=== PATIENT | male | born 1950 | race Caucasian/White ===

== ENCOUNTER 2021-12-01 11:37 | Outpatient (CLI) | payer MEDICARE, BC ==
[2021-12-01 13:33] LABS: #Basophils 0.1 10x3/uL (0.0-0.2); #Eosinphils 0.3 10x3/uL (0.0-0.5); #Neutrophils 5.3 10x3/uL (1.5-8.4); %Basophils 0.9 % (0.0-2.0); %Eosinophils 3.7 % (0.0-6.0); %Lymphocytes 20.7 % (18.0-47.0); %Monocytes 11.5 % (0.0-10.0); %Neutrophils 62.7 % (40.0-75.0); Hemoglobin 15.4 g/dL (13.5-17.5); Mean Corpuscular Hemoglobin 29.7 pg (27.0-33.0); Mean Corpuscular Volume 90.2 fl (81.2-95.1); Platelet Count 201 10x3/uL (150-450); RBC Distribution Width 13.6 % (11.5-14.5); Red Blood Cell (RBC) Count 5.18 10x6/uL (4.32-5.72); White Blood Cell (WBC) Count 8.5 10x3/uL (3.5-10.5)
[2021-12-01 14:14] LABS: ALT (SGPT) 29 U/L (8-55); AST (SGOT) 28 U/L (5-34); Alkaline Phosphatase 52 U/L (40-110); Anion Gap 11 mmol/L (10-20); BUN (Urea Nitrogen) 22 mg/dL (8.4-25.7); Bilirubin, Total 0.7 mg/dL (0.2-1.2); Calc. Creatinine Clearance 0 mL/min (70-130); Calcium 8.9 mg/dL (7.8-10.44); Carbon Dioxide 26 mmol/L (23-31); Chloride 106 mmol/L (98-107); Glucose 93 mg/dL (83-110); Potassium 4.3 mmol/L (3.5-5.1); Sodium 139 mmol/L (136-145)
[2021-12-01 20:13] LABS: SARS-CoV-2 PCR by NAA Not Detected (NotDetected)
== END 2021-12-01 11:38 | disposition home or self-care (01) ==
LOC: LABBT 11:37
PROVIDERS: ATTEND Internal Medicine Cardiovascular Disease
DX: Z01.812 Encounter for preprocedural laboratory examination (principal); Z20.822 Contact with and (suspected) exposure to COVID-19
CPT/HCPCS: 80053; 85025; U0003; U0005

== ENCOUNTER 2021-12-03 05:49 | Inpatient (IN) | payer MEDICARE, BC ==
[2021-12-03] MEDS ORDERED: Midazolam HCl 2 mg/2 ml Vial ONE (07:04)
[2021-12-03] MEDS ORDERED: Fentanyl 100 MCG/2 ML VIAL ONE ×2 (07:05→08:14)
[2021-12-03] MEDS ORDERED: Nitroglycerin 4.9 GM Bottle ONE (08:00)
[2021-12-03] MEDS ORDERED: Nitroglycerin 2% Ointment 1 INCH/1 GM Packet ONE (08:00)
[2021-12-03] MEDS ORDERED: Iopamidol 370 76% 100 ML VIAL ONE (08:48)
[2021-12-03] MEDS ORDERED: Nitroglycerin 0.4 MG TAB (25 Tab Bottle) SL PRN (09:00)
[2021-12-03] MEDS ORDERED: Rosuvastatin 10 MG TAB PO SCH (09:00)
[2021-12-03] MEDS ORDERED: Acetaminophen/Codeine 30-300mg Tablet PO PRN ×2 (09:00)
[2021-12-03] MEDS ORDERED: Metoprolol Tartrate 25 MG TAB PO SCH (09:00)
[2021-12-03 11:54] VITALS: BMI 24.7
[2021-12-03] MEDS ORDERED: Enoxaparin Sodium 40 MG/0.4 ML SYRINGE SC SCH (21:00)
[2021-12-03] MEDS ORDERED: Polyvinyl Alcohol 1.4%/Povidone 0.6% Opth Drops EA EYE SCH (21:00)
[2021-12-03] MEDS ORDERED: Aspirin 81 mg Enteric Coated Tablet PO SCH (21:00)
[2021-12-03] MEDS ORDERED: Latanoprost 0.005% Ophth Soln 2.5 ml Bottle EA EYE SCH (21:00)
[2021-12-03] MEDS ORDERED: Nitroglycerin 2% Ointment 1 INCH/1 GM Packet TOP SCH (22:00)
[2021-12-03 22:36] VITALS: BP 142/75; TEMP 98.1
== END 2021-12-03 21:45 | disposition short-term general hospital (02) | DRG 287 ==
LOC: CCL 05:49 → SURG A 08:40 → 2NO 11:37
PROVIDERS: ADMIT Internal Medicine Cardiovascular Disease; ATTEND Internal Medicine Cardiovascular Disease
PROC: 4A023N7 Measurement of Cardiac Sampling and Pressure, Left Heart, Percutaneous Approach (ICD-10-PCS; principal; 2021-12-03)
PROC: B2131ZZ Fluoroscopy of Multiple Coronary Artery Bypass Grafts using Low Osmolar Contrast (ICD-10-PCS; 2021-12-03)
DX: I25.118 Atherosclerotic heart disease of native coronary artery with other forms of angina pectoris (principal); K21.9 Gastro-esophageal reflux disease without esophagitis; E61.1 Iron deficiency; I12.9 Hypertensive chronic kidney disease with stage 1 through stage 4 chronic kidney disease, or unspecified chronic kidney disease; E78.00 Pure hypercholesterolemia, unspecified; I34.0 Nonrheumatic mitral (valve) insufficiency; I35.0 Nonrheumatic aortic (valve) stenosis; N18.31 Chronic kidney disease, stage 3a; I65.22 Occlusion and stenosis of left carotid artery; Z88.0 Allergy status to penicillin; Z88.8 Allergy status to other drugs, medicaments and biological substances; Z79.82 Long term (current) use of aspirin; Z79.899 Other long term (current) drug therapy; Z98.890 Other specified postprocedural states
CPT/HCPCS: 93459; 93880; 99152; J1650; J2250; J3010; Q9967

== ENCOUNTER 2023-07-26 06:27 | Day surgery (SDC) | payer MEDICARE, BC ==
[2023-07-25 10:48] VITALS: BMI 24.3
[~2023-07-26 06:27] MED LIST: EPINEPHrine 0.3 MG in Ophthalmic Irrigation Solution 500 ML IRR SCH
[2023-07-26] MEDS ORDERED: Midazolam HCl 2 mg/2 ml Vial ONE (06:32)
[2023-07-26] MEDS ORDERED: PROPOFOL 20 ML ONE (06:32)
[2023-07-26] MEDS ORDERED: fentaNYL 50 mcg/mL 1 mL Vial ONE (06:32)
[2023-07-26] MEDS ORDERED: Cyclopentolate W/ Phenylephrin 40 DROP/2 ML BOT ONE (06:45)
[2023-07-26] MEDS ORDERED: Lidocaine 4% PF 5 ML AMP ONE (07:45)
[2023-07-26] MEDS ORDERED: Bupivacaine 0.75% 10 ML VIAL ONE (07:45)
[2023-07-26] MEDS ORDERED: Maxitrol 0.1% Opth Oint 3.5 GM TUBE ONE (07:45)
[2023-07-26] MEDS ORDERED: Triamcinolone 40 MG/ML VIAL ONE (07:45)
== END 2023-07-26 08:45 | disposition home or self-care (01) ==
LOC: SDC 06:27
PROVIDERS: ATTEND Ophthalmology Retina Specialist
PROC: 08T43ZZ Resection of Right Vitreous, Percutaneous Approach (ICD-10-PCS; principal; 2023-07-26)
DX: H43.11 Vitreous hemorrhage, right eye (principal)
CPT/HCPCS: J0171; J2250; J2704; J3010; J3301; J3490

== ENCOUNTER 2024-12-22 17:25 | Inpatient (IN) | payer MEDICARE, BC ==
[~2024-12-22 17:25] MED LIST changes: -EPINEPHrine 0.3 MG in Ophthalmic Irrigation Solution 500 ML IRR SCH; +Iopamidol-370 76% 500 ML MDV (1 ML CHARGE) ONE
[2024-12-22 18:41] LABS: Hematocrit 47.6 % (42.0-52.0); Hemoglobin 15.7 g/dL (14.0-18.0); Mean Corpuscular Hemoglobin 30.2 pg (27.0-31.0); Mean Corpuscular Volume 91.5 fL (78.0-98.0); Mean Platelet Volume 10.2 fL (7.4-10.4); Platelet Count 154 10x3/uL (130-400); RBC Distribution Width 13.9 % (11.5-14.5)
[2024-12-22 18:51] LABS: ALT (SGPT) 25 U/L (Less than 45); AST (SGOT) 32 U/L (11-34); Albumin 3.5 g/dL (3.1-4.5); Alkaline Phosphatase 50 U/L (40-110); Anion Gap 14 mmol/L (10-20); BUN (Urea Nitrogen) 37 mg/dL (8.4-25.7); Bilirubin, Total 0.7 mg/dL (0.3-1.2); Calc. Creatinine Clearance 0 mL/min (70-130); Calcium 9.2 mg/dL (7.8-10.44); Carbon Dioxide 20 mmol/L (23-31); Chloride 108 mmol/L (98-107); Estimated GFR 44; Globulin 3.3 g/dL (2.4-3.5); Glucose 135 mg/dL (83-110); Potassium 4.2 mmol/L (3.5-5.1); Protein, Total 6.8 g/dL (5.8-8.1); Sodium 138 mmol/L (136-145)
[2024-12-22 18:54] LABS: Troponin I 0.013 ng/mL (< 0.028)
[2024-12-22 19:01] LABS: Band 1 % (5-11); Eosinophils 2 % (0-10); Lymphocytes 13 % (21-51); Monocytes 15 % (0-10); Neutrophil 63 % (42-75); Platelet Adequacy Comment Platelets Normal; Reactive Lymphocytes 5 % (0-10); Smudge Cells 30.6 %; Tear Drops SLIGHT = 2-5 cells HPF (0-1)
[2024-12-22] MEDS ORDERED: hydrALAZINE 20 MG/ML VIAL SLOW IVP PRN (21:51)
[2024-12-22] MEDS ORDERED: Ondansetron PF 4 MG/2 ML Vial IVP PRN (21:51)
[2024-12-22] MEDS ORDERED: Acetaminophen 325 MG TAB PO PRN (21:51)
[2024-12-22] MEDS ORDERED: Ondansetron ODT 4 MG TAB PO PRN (21:51)
[2024-12-22 22:08] VITALS: BMI 25.7
[2024-12-23] MEDS: Aspirin Chewable 81 MG TAB PO SCH (03:34)
[2024-12-23 05:04] LABS: Hematocrit 46.2 % (42.0-52.0); Hemoglobin 15.5 g/dL (14.0-18.0); Mean Corpuscular HGB CONC 33.5 g/dL (32.0-36.0); Mean Corpuscular Volume 89.4 fL (78.0-98.0); Mean Platelet Volume 10.5 fL (7.4-10.4); Platelet Count 153 10x3/uL (130-400); Red Blood Cell (RBC) Count 5.17 mill/uL (4.70-6.10)
[2024-12-23 05:30] LABS: Eosinophils 3 % (0-10); Lymphocytes 15 % (21-51); Monocytes 10 % (0-10); Neutrophil 63 % (42-75); Platelet Adequacy Comment Platelets Normal; RBC Morphology Within Normal Limits; Reactive Lymphocytes 8 % (0-10)
[2024-12-23 05:33] LABS: Anion Gap 12 mmol/L (10-20); BUN (Urea Nitrogen) 38 mg/dL (8.4-25.7); Calc. Creatinine Clearance 56 mL/min (70-130); Calcium 8.7 mg/dL (7.8-10.44); Carbon Dioxide 22 mmol/L (23-31); Cardiac Risk 2.7 (Less than 4.5); Chloride 109 mmol/L (98-107); Cholesterol 122 mg/dl (< 200 Desired); Estimated GFR 53; Glucose 98 mg/dL (83-110); HDL Cholesterol 46 mg/dL (>60 Neg Risk); LDL Cholesterol, Calculated 55 mg/dL; Magnesium 2.2 mg/dL (1.6-2.6); Potassium 3.9 mmol/L (3.5-5.1); Sodium 139 mmol/L (136-145); Triglycerides 106 mg/dL (Less than 150)
[2024-12-23 05:34] LABS: Hemoglobin A1c 5.5 % (4.0-6.0)
[2024-12-23] MEDS: Pantoprazole 40 MG DR.TAB PO SCH (08:58)
[2024-12-23] MEDS: Aspirin 81 mg Enteric Coated Tablet PO SCH (08:58)
[2024-12-23] MEDS: Rosuvastatin 20 MG TAB PO SCH (08:58)
[2024-12-23] MEDS: Ferrous Sulfate 325 MG TAB PO SCH (20:28)
[2024-12-24 05:58] LABS: #Basophils 0.08 10x3/uL (0.0-0.2); %Basophils 0.7 % (0.0-1.0); %Eosinophils 3.1 % (0.0-10.0); %Lymphocytes 42.7 % (21.0-51.0); %Monocytes 13.2 % (0.0-10.0); Hematocrit 46.9 % (42.0-52.0); Hemoglobin 15.6 g/dL (14.0-18.0); Mean Corpuscular HGB CONC 33.3 g/dL (32.0-36.0); Mean Corpuscular Hemoglobin 29.9 pg (27.0-31.0); Mean Corpuscular Volume 89.8 fL (78.0-98.0); Mean Platelet Volume 10.5 fL (7.4-10.4); Platelet Count 145 10x3/uL (130-400); Red Blood Cell (RBC) Count 5.22 mill/uL (4.70-6.10)
[2024-12-24 06:21] LABS: Anion Gap 11 mmol/L (10-20); BUN (Urea Nitrogen) 25 mg/dL (8.4-25.7); Calc. Creatinine Clearance 68 mL/min (70-130); Calcium 8.8 mg/dL (7.8-10.44); Carbon Dioxide 21 mmol/L (23-31); Chloride 108 mmol/L (98-107); Estimated GFR 66; Glucose 86 mg/dL (83-110); Potassium 4.1 mmol/L (3.5-5.1); Sodium 136 mmol/L (136-145)
[2024-12-24] MEDS ORDERED: Clopidogrel Bisulfate 75 MG TAB PO SCH (09:00)
[2024-12-24 14:57] VITALS: BP 149/75; TEMP 97.5
== END 2024-12-24 15:39 | disposition home or self-care (01) | DRG 69 ==
LOC: ERS 17:25 → 2NO 20:44 → OBSVTOIN 12-24 10:16
PROVIDERS: ADMIT Student in an Organized Health Care Education/Training Program; ATTEND Internal Medicine
DX: G45.9 Transient cerebral ischemic attack, unspecified (principal); I25.10 Atherosclerotic heart disease of native coronary artery without angina pectoris; I10 Essential (primary) hypertension; K21.9 Gastro-esophageal reflux disease without esophagitis; Z95.1 Presence of aortocoronary bypass graft; R29.810 Facial weakness; D64.9 Anemia, unspecified; Z95.0 Presence of cardiac pacemaker; Z88.2 Allergy status to sulfonamides; Z91.048 Other nonmedicinal substance allergy status; Z88.0 Allergy status to penicillin; Z95.5 Presence of coronary angioplasty implant and graft; Z95.2 Presence of prosthetic heart valve; Z79.82 Long term (current) use of aspirin; Z79.899 Other long term (current) drug therapy
CPT/HCPCS: 36415; 70450; 70496; 70498; 70551; 71045; 80048; 80053; 80061; 83036; 83735; 84443; 84484; 85025; 93005; 93306; G0378; Q9967